=== PATIENT | male | born 1965 | race Caucasian/White ===

== ENCOUNTER 2017-10-25 20:14 | Emergency (ER) | payer SELFPAY ==
[2017-10-25] MEDS ORDERED: Ketorolac Tromethamine 30 MG/ML VIAL ONE (20:57)
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
[2017-10-25] MEDS ORDERED: predniSONE 20 MG TAB ONE (22:07)
== END 2017-10-25 22:15 | disposition home or self-care (01) ==
LOC: BURERS 20:14
DX: S39.92XA Unspecified injury of lower back, initial encounter (principal); M51.26 Other intervertebral disc displacement, lumbar region; M54.42 Lumbago with sciatica, left side; F17.210 Nicotine dependence, cigarettes, uncomplicated; X50.1XXA Overexertion from prolonged static or awkward postures, initial encounter
CPT/HCPCS: 72131; 96372; J1885; J7506